=== PATIENT | male | born 1995 | race Caucasian/White ===

== ENCOUNTER → 2021-08-29 | Outpatient (CLI) | payer OTHER | END | disposition home or self-care (01) | LOC: RADPV 10:35 | PROVIDERS: ATTEND Family Medicine | DX: Q55.4 Other congenital malformations of vas deferens, epididymis, seminal vesicles and prostate (principal); N43.3 Hydrocele, unspecified; I86.1 Scrotal varices | CPT/HCPCS: 76870 ==